=== PATIENT | female | born 1995 | race Native Hawaiian/Other Pacific Islander ===

== ENCOUNTER 2018-10-11 03:35 | Emergency (ER) | payer OTHER ==
[~2018-10-11] VITALS: Ht 165.1 cm; Wt 86.2 kg
[2018-10-11 04:39] LABS: POTASSIUM 3.9 mmol/L (3.6-5.2)
[2018-10-11 06:23] VITALS: BP 130/72; TEMP 97.4
[2018-10-11 11:13] LABS: PLATELET COUNT 249 K/uL (152-353)
== END 2018-10-11 06:24 | disposition home or self-care (01) ==
LOC: ED 03:35
PROVIDERS: Emergency Medicine
DX: N39.0 Urinary tract infection, site not specified (principal); N10 Acute pyelonephritis; N13.2 Hydronephrosis with renal and ureteral calculous obstruction; Z87.442 Personal history of urinary calculi
CPT/HCPCS: 80053; 81000; 81025; 85027; 87077; 87086; 87088; 87186; 96372; 99283; J0696; J1885